=== PATIENT | female | born 1980 | race Caucasian/White ===

== ENCOUNTER 2017-03-13 12:36 | Emergency (ER) | payer OTHER ==
[~2017-03-13] VITALS: Ht 156.2 cm; Wt 145.7 kg
[2017-03-13] MEDS ORDERED: CETI10TA (12:51)
[2017-03-13] MEDS ORDERED: VITA1CAP40 (12:51)
[2017-03-13] MEDS ORDERED: MONT10TA2 (12:51)
[2017-03-13] MEDS ORDERED: METF500T4 (12:51)
[2017-03-13] MEDS ORDERED: ARNU1INH (12:51)
[2017-03-13] MEDS ORDERED: LEVO75TA4 (12:51)
[2017-03-13] MEDS ORDERED: BREO1INH (12:51)
[2017-03-13] MEDS ORDERED: IPRATROPIUM 0.5MG/ALBUTEROL 2.5MG INH SOL UD 3ML (DUONEB)(J7620) NEB ONE (13:15)
[2017-03-13] MEDS ORDERED: ALBU17IN INH (14:45)
[2017-03-13] MEDS ORDERED: PRED20TA PO (14:45)
[2017-03-13] MEDS ORDERED: BENZ200C53 PO (14:45)
[2017-03-13 14:50] VITALS: BP 155/90
--- NOTE | 2017-03-13 15:50 | REP ---
HISTORY: Chest pain and productive cough. COMPARISON: 06/03/2010. FINDINGS: The superior mediastinal structures are midline. The cardiac silhouette is unremarkable in size, shape and position. The diaphragmatic surfaces of the lungs are regular and the costophrenic angles are clear. The pulmonary carlson are clear. The imaged osseous structures are intact. IMPRESSION: There is no acute cardiopulmonary disease. Signed by Deny Barrett DO 03/13/2017 04:37 P
== END 2017-03-13 14:59 | disposition home or self-care (01) ==
LOC: M ED 12:36
DX: J45.901 Unspecified asthma with (acute) exacerbation (principal)

== ENCOUNTER → 2018-05-10 | Outpatient (CLI) | payer BC, MEDICAID, SELFPAY, OTHER | LOC: M PLARAD 07:34 | DX: M19.011 Primary osteoarthritis, right shoulder (principal); S46.011A Strain of muscle(s) and tendon(s) of the rotator cuff of right shoulder, initial encounter; M75.41 Impingement syndrome of right shoulder; Y92.89 Other specified places as the place of occurrence of the external cause; Y93.89 Activity, other specified; X58.XXXA Exposure to other specified factors, initial encounter; Y99.8 Other external cause status | CPT/HCPCS: 73221 ==

== ENCOUNTER → 2018-06-28 | Outpatient (CLI) | payer BC | LOC: M PLARAD 10:18 | DX: M50.30 Other cervical disc degeneration, unspecified cervical region (principal); M47.812 Spondylosis without myelopathy or radiculopathy, cervical region | CPT/HCPCS: 72141 ==

== ENCOUNTER 2018-10-07 18:09 | Emergency (ER) | payer BC ==
[~2018-10-07] VITALS: Ht 154.9 cm; Wt 145.4 kg
[~2018-10-07 18:09] MED LIST: ALBU17IN INH; ARNU1INH; BENZ200C70 PO; BREO1INH; CETI10TA; LEVO75TA4; METF500T4; MONT10TA2; PRED20TA PO; VITA50005
[2018-10-07] MEDS ORDERED: ADV100INH INH (18:15)
[2018-10-07] MEDS ORDERED: NAPR-50 PO (19:14)
[2018-10-07 19:27] VITALS: BP 118/70
== END 2018-10-07 19:30 | disposition home or self-care (01) ==
LOC: M ED 18:09
DX: M17.12 Unilateral primary osteoarthritis, left knee (principal); Z98.890 Other specified postprocedural states; J45.909 Unspecified asthma, uncomplicated; E11.9 Type 2 diabetes mellitus without complications; E03.9 Hypothyroidism, unspecified; Z79.899 Other long term (current) drug therapy; Z79.84 Long term (current) use of oral hypoglycemic drugs; Z79.51 Long term (current) use of inhaled steroids

== ENCOUNTER 2019-01-03 15:12 | Emergency (ER) | payer BC ==
[~2019-01-03] VITALS: Ht 154.9 cm; Wt 143.4 kg
[~2019-01-03 15:12] MED LIST changes: +ADV100INH INH; +NAPR-837 PO
[2019-01-03] MEDS ORDERED: IPRATROPIUM 0.5MG/ALBUTEROL 2.5MG INH SOL UD 3ML (DUONEB)(J7620) NEB ONE (16:30)
[2019-01-03] MEDS ORDERED: predniSONE 20 MG TAB PO ONE (16:30)
--- NOTE | 2019-01-03 16:45 | REP ---
Chest two views HISTORY: Cough Comparison: 03/13/2017 The lungs are clear. The heart is normal in size. The pulmonary vasculature is normal in appearance. The bony structure is intact. IMPRESSION: No acute disease. Electronically Signed by [place] MD 01/03/2019 04:36 P
[2019-01-03 16:55] VITALS: BP 135/73
[2019-01-03] MEDS ORDERED: PRED20TA PO (17:18)
[2019-01-03] MEDS ORDERED: CETI10CA2 PO (17:18)
[2019-01-03] MEDS ORDERED: VENTAER INH (17:18)
[2019-01-03] MEDS ORDERED: MUCI600T31 PO (17:18)
--- NOTE | 2019-01-03 19:51 | ECGEPIP ---
Stationary ECG Study [facility] - ED Test Date: 2019-01-03 Pat Name: JEFFERSON GARG Department: Room: - Gender: F Neuropsychologist: : 1980 Requested By: Jyoti Ibrahim Order Number: [id number] Reading MD: Jyoti Ibrahim Measurements Intervals [place] Rate: 89 P: 10 HI: 126 QRS: 3 QRSD: 98 T: 37 QT: 333 QTc: 405 Interpretive Statements SINUS RHYTHM CW 11/26/13 RATE INCREASED Electronically Signed On 01-03-2019 19:51:35 EDT by Jyoti Ibrahim
== END 2019-01-03 17:23 | disposition home or self-care (01) ==
LOC: M ED 15:12
DX: J45.909 Unspecified asthma, uncomplicated (principal); E11.9 Type 2 diabetes mellitus without complications

== ENCOUNTER 2019-01-06 20:44 | Emergency (ER) | payer BC ==
[~2019-01-06] VITALS: Ht 154.9 cm; Wt 145.4 kg
[~2019-01-06 20:44] MED LIST changes: +CETI10CA2 PO; +MUCI600T31 PO; +VENTAER INH
[2019-01-07] MEDS ORDERED: ACETAMINOPHEN 500 MG TAB PO ONE (01:00)
[2019-01-07] MEDS ORDERED: ALBUTEROL SULFATE 2.5 MG/0.5 ML INH NEB SOLN NEB ONE (01:00)
[2019-01-07] MEDS ORDERED: AUGMENTIN 875 MG TAB PO ONE (01:00)
[2019-01-07 01:04] VITALS: BP 133/75
--- NOTE | 2019-01-07 01:04 | REP ---
Clinical: Persistent cough . Comparison: 01/03/2019 . Technique: PA and lateral. Findings: The mediastinum and cardiac silhouette are normal. The lung carlson are clear and without acute consolidation, effusion, or pneumothorax. The skeletal structures are intact and normal. Impression: 1. No acute cardiopulmonary process. Electronically Signed by Javed Moya MD 01/07/2019 12:56 A
[2019-01-07] MEDS ORDERED: GNPTAB PO (02:05)
[2019-01-07] MEDS ORDERED: AMOX875T2 PO (02:05)
[2019-01-07] MEDS ORDERED: FLUT50SP33 NARES (02:05)
[2019-01-07] MEDS ORDERED: ALB2.5NEB NEB (02:07)
== END 2019-01-07 02:14 | disposition home or self-care (01) ==
LOC: M ED 20:44
DX: J45.901 Unspecified asthma with (acute) exacerbation (principal); J01.90 Acute sinusitis, unspecified; R09.82 Postnasal drip; E11.9 Type 2 diabetes mellitus without complications; E03.9 Hypothyroidism, unspecified; Z79.899 Other long term (current) drug therapy; Z79.52 Long term (current) use of systemic steroids; Z79.51 Long term (current) use of inhaled steroids; Z79.84 Long term (current) use of oral hypoglycemic drugs

== ENCOUNTER 2019-06-26 23:54 | Emergency (ER) | payer BC ==
[~2019-06-26] VITALS: Ht 154.9 cm; Wt 145.4 kg
[~2019-06-26 23:54] MED LIST changes: +ALB2.5NEB NEB; +AMOX875T2 PO; +FLUT50SP33 NARES; +GNPTAB PO; +METF-791; -METF500T4
[2019-06-27] MEDS ORDERED: ARNU1INH3 PO (00:03)
[2019-06-27] MEDS ORDERED: CYCL10TA PO (01:22)
[2019-06-27] MEDS ORDERED: CIPRODEX AD (01:23)
[2019-06-27] MEDS ORDERED: CYCLOBENZAPRINE 10 MG TAB PO ONE (01:30)
[2019-06-27] MEDS: KETOROLAC 60 MG/2 ML VIAL (J1885) IM ONE ×2 (01:42→01:43)
[2019-06-27 01:51] VITALS: BP 141/85
== END 2019-06-27 02:07 | disposition home or self-care (01) ==
LOC: M ED 23:54
DX: H60.61 Unspecified chronic otitis externa, right ear (principal); M25.511 Pain in right shoulder; E11.9 Type 2 diabetes mellitus without complications; J45.909 Unspecified asthma, uncomplicated; Z79.51 Long term (current) use of inhaled steroids; Z79.84 Long term (current) use of oral hypoglycemic drugs; Z79.899 Other long term (current) drug therapy
CPT/HCPCS: 96372; 99283; J1885

== ENCOUNTER → 2019-09-26 | Outpatient (CLI) | payer BC ==
[~2019-09-26] MED LIST changes: +ARNU1INH3 PO; +CIPRODEX AD; +CYCL10TA PO
--- NOTE | 2019-09-26 12:53 | REP ---
MRI left knee without contrast: History: Pain in the left knee. The patient relates injury 2013 and surgery 2013. Comparison MRI study of the left knee is from August 19, 2013. Comparison radiographs July 30, 2013. Technique: Axial, coronal, and sagittal imaging planes were utilized. T1 and T2-weighted and proton density weighted scans were obtained with and without fat saturation. MRI findings: There is a small to moderate joint effusion. Cortical and medullary bone signal intensity are normal. No Mcneil's cyst is seen. Prepatellar tendon soft tissue edema is again visible. Patellar and quadriceps tendon are intact. Anterior and posterior cruciate ligament are intact. There is no evidence of medial or lateral collateral ligament disruption. No lateral meniscal tear is appreciated. There is lateral compartment osteoarthritic spurring however. There is mild medial compartment spurring. There is a complex degenerative tear pattern in the medial meniscus involving the body and posterior horn. The posterior horn is a little smaller suggesting previous meniscectomy. No displaced meniscal material is appreciated. There is medial extrusion of the degenerated meniscus at mid body level bowing the medial collateral ligament. There is moderate diffuse chondromalacia and cartilage loss in the medial and lateral tibiofemoral compartments. Patellar articular cartilage is intact as is the trochlear articular cartilage. There is no visible loose body. Impression: Medial and lateral compartment osteoarthritis. Degenerative tear pattern body and posterior horn medial meniscus. Fairly diffuse articular cartilage chondromalacia changes medial and to a lesser extent lateral compartment. There is a small joint effusion. Prepatellar soft tissue edema is again seen. Electronically Signed by William Huertas MD 09/26/2019 06:37 P
== END ==
LOC: M RAD 09:42
PROVIDERS: ATTEND Physician Assistant Surgical
DX: M17.12 Unilateral primary osteoarthritis, left knee (principal); M25.462 Effusion, left knee; M25.562 Pain in left knee

== ENCOUNTER → 2019-10-10 | Outpatient (CLI) | payer BC ==
[~2019-10-10] MED LIST changes: -MONT10TA2; +MONT10TA4
--- NOTE | 2019-10-11 22:09 | REPVR ---
PROCEDURE INFORMATION: Exam: MR Cervical Spine Without Contrast Exam date and time: 10/10/2019 3:16 PM Age: 39 years old Clinical indication: Neck pain; Additional info: Cervical disc degeneration TECHNIQUE: Imaging protocol: Multiplanar magnetic resonance images of the cervical spine without contrast. COMPARISON: MRI-Spine,Cervical without con 06/28/2018 10:50 AM FINDINGS: Vertebrae: Straightened lordotic curvature. Spinal cord: Normal signal. No cord compression. C2-C3: No significant disc disease. No significant spinal stenosis. C3-C4: Mild annular bulge at C3-C4 effaces the ventral subarachnoid space without cord impingement. No foraminal stenosis. C4-C5: Broad posterior disc protrusion at C4-C5 effaces the ventral subarachnoid space with mild left hemicord impingement. No significant foraminal stenosis. C5-C6: Broad posterior disc protrusion at C5-C6 effaces the ventral subarachnoid space with mild cord impingement. No foraminal stenosis. C6-C7: No significant disc disease. No significant spinal stenosis. C7-T1: No significant disc disease. No significant spinal stenosis. Vertebral arteries: Expected flow voids in the vertebral arteries. Soft tissues: Unremarkable. IMPRESSION: 1. Bulging annulus C3-C4 without neural compromise. 2. Broad posterior disc protrusions at C4-C5 and C5-C6 with mild left hemicord impingement at C4-C5 and mid cord impingement at C5-C6. 3. No significant interval change. Electronically signed by: Miguel Mello On 10/11/2019 22:08:26 PM
== END ==
LOC: M PLARAD 14:20
PROVIDERS: ATTEND Physician Assistant
DX: M50.30 Other cervical disc degeneration, unspecified cervical region (principal); M50.20 Other cervical disc displacement, unspecified cervical region

== ENCOUNTER → 2020-05-07 | Outpatient (CLI) | payer BC ==
[~2020-05-07] MED LIST changes: +CYCL-707 PO; -CYCL10TA PO; -METF-791; +METF-838
[2020-05-07 19:21] LABS: BASO # 0.1 10^3/uL (0.0-0.2); EOS # 0.3 10^3/uL (0.0-0.5); EOS % 3.4 % (0.0-3.0); HEMATOCRIT 40.8 % (36.0-47.0); HEMOGLOBIN 13.1 g/dl (12.0-15.5); LYMPH # 2.3 10^3/uL (1.5-5.0); LYMPH % 26.7 % (24.0-44.0); MEAN CORPUSCULAR HEMOGLOBIN 28.5 pg (27.0-33.0); MEAN CORPUSCULAR HGB CONC 32.1 g/dl (32.0-36.5); MEAN CORPUSCULAR VOLUME 88.7 fl (80.0-96.0); MONO # 0.6 10^3/uL (0.0-0.8); MONO % 6.7 % (0.0-5.0); NEUTROPHILS # 5.4 10^3/uL (1.5-8.5); PLATELET COUNT, AUTOMATED 330 10^3/uL (150-450); WHITE BLOOD COUNT 8.6 10^3/uL (4.0-10.0)
[2020-05-07 19:38] LABS: RHEUMATOID FACTOR QUANT < 10.0 IU/ML (<15.0); URIC ACID 5.8 MG/DL (2.6-6.0)
[2020-05-07 19:39] LABS: C REACTIVE PROTEIN QUANTITATIV < 0.30 MG/DL (0.00-0.30)
[2020-05-07 20:52] LABS: ERYTHROCYTE SEDIMENTATION RATE 11 mm/hr (0-20)
[2020-05-13 23:07] LABS: ANTINUCLEAR ANTIBODIES DIRECT Negative (Negative); HLA-B27 Positive (.); Lyme Disease IgG/IgM Antibodie <0.91 ISR (0.00-0.90); Lyme Disease IgM Ab Quantitati <0.80 index (0.00-0.79)
== END ==
LOC: M WUC 13:07
PROVIDERS: ATTEND Physician Assistant Surgical
DX: M17.12 Unilateral primary osteoarthritis, left knee (principal)

== ENCOUNTER → 2021-02-24 | Outpatient (REF) | payer OTHER ==
[~2021-02-24] MED LIST changes: +CIPR7.5D5 AD; -CIPRODEX AD; +MONT10TA10; -MONT10TA4
== END ==
LOC: M LAB REF 16:21
PROVIDERS: ATTEND Surgery
DX: L91.8 Other hypertrophic disorders of the skin (principal)

== ENCOUNTER → 2021-03-18 | Outpatient (CLI) | payer OTHER ==
[2021-03-18 19:25] LABS: BASO # 0.1 10^3/uL (0.0-0.2); BASO % 0.9 % (0.0-1.0); EOS # 0.3 10^3/uL (0.0-0.5); EOS % 2.4 % (0.0-3.0); HEMATOCRIT 43.2 % (36.0-47.0); HEMOGLOBIN 13.8 g/dl (12.0-15.5); LYMPH # 2.7 10^3/uL (1.5-5.0); LYMPH % 23.2 % (24.0-44.0); MEAN CORPUSCULAR HEMOGLOBIN 27.9 pg (27.0-33.0); MEAN CORPUSCULAR HGB CONC 31.9 g/dl (32.0-36.5); MEAN CORPUSCULAR VOLUME 87.4 fl (80.0-96.0); MONO # 0.5 10^3/uL (0.0-0.8); MONO % 4.5 % (2.0-8.0); NEUTROPHILS % 68.7 % (36.0-66.0); PLATELET COUNT, AUTOMATED 319 10^3/uL (150-450); RED BLOOD COUNT 4.94 10^6/uL (4.00-5.40); WHITE BLOOD COUNT 11.6 10^3/uL (4.0-10.0)
[2021-03-18 19:47] LABS: ERYTHROCYTE SEDIMENTATION RATE 16 mm/hr (0-20)
[2021-03-18 19:53] LABS: ALBUMIN 4.2 GM/DL (3.2-5.2); ALT/SGPT 32 U/L (12-78); BILIRUBIN,TOTAL 0.3 MG/DL (0.2-1.0); BLOOD UREA NITROGEN 13 MG/DL (7-18); CALCIUM LEVEL 8.8 MG/DL (8.5-10.1); CARBON DIOXIDE LEVEL 24 MEQ/L (21-32); CHLORIDE LEVEL 106 MEQ/L (98-107); CREATININE FOR GFR 0.92 MG/DL (0.55-1.30); GLOMERULAR FILTRATION RATE > 60.0 (>58); GLUCOSE, FASTING 127 MG/DL (70-100); POTASSIUM SERUM 5.9 MEQ/L (3.5-5.1); SODIUM LEVEL 136 MEQ/L (136-145); TOTAL PROTEIN 8.7 GM/DL (6.4-8.2)
--- NOTE | 2021-04-01 14:22 | REP ---
INDICATION: LOW BACK PAIN-LAB 1ST AND XRAY 2ND. Repeat dictation. COMPARISON: None. TECHNIQUE: Four views. FINDINGS: Four views of the sacrum and SI joints demonstrate no evidence of ankylosis or erosive change. There is minimal early SI joint spurring. No bony destructive lesion. IMPRESSION: Minimal SI joint spurring. No evidence of ankylosis or erosive change. <Electronically signed by Liam Huertas > 04/01/21 [id number]
--- NOTE | 2021-04-01 14:23 | REP ---
INDICATION: LOW BACK PAIN-LAB 1ST AND XRAY 2ND. Repeat dictation. COMPARISON: None. TECHNIQUE: Five views of the lumbar spine are obtained including lateral views in flexion and extension. FINDINGS: Lumbar vertebral body heights are preserved. Alignment is normal. No subluxation or instability is seen with upright flexion extension views. There is discogenic spurring anteriorly at L3-4 L2-3 and L1-2. Pedicles and posterior elements are intact. Minimal facet hypertrophy is present bilaterally at L4-5. Psoas margins are symmetric. There are clips in right upper quadrant of the abdomen. IMPRESSION: Mild degenerative spondylosis changes. No subluxation or instability with flexion extension lateral views. <Electronically signed by Liam Huertas > 04/01/21 [id number]
--- NOTE | 2021-04-01 14:25 | REP ---
INDICATION: LOW BACK PAIN-LAB 1ST AND XRAY 2ND. Repeat dictation. COMPARISON: None. TECHNIQUE: Three views of the thoracic spine are presented. FINDINGS: Thoracic vertebral body heights are preserved. Alignment is normal. Discogenic spurring is noted in the midthoracic spine at multiple levels. The pedicles and the posterior elements are intact. No paravertebral soft tissue mass or swelling is seen. No bony destructive lesion is appreciated. IMPRESSION: Degenerative disc changes. No acute bony abnormality. <Electronically signed by Liam Huertas > 04/01/21 [id number]
== END ==
LOC: M LAB 18:19
PROVIDERS: ATTEND Internal Medicine Rheumatology
DX: M51.34 Other intervertebral disc degeneration, thoracic region (principal); M47.816 Spondylosis without myelopathy or radiculopathy, lumbar region

== ENCOUNTER → 2021-03-29 | Outpatient (CLI) | payer OTHER | LOC: M LAB 13:38 | PROVIDERS: ATTEND Nurse Practitioner Family | DX: E87.5 Hyperkalemia (principal) ==

== ENCOUNTER → 2021-08-11 | Outpatient (CLI) | payer OTHER ==
--- NOTE | 2021-08-11 11:45 | REP ---
INDICATION: (+) HLA B27 W/ STENOSIS. COMPARISON: Radiographs 03/18/2021. TECHNIQUE: Multiple sequences obtained in the axial, coronal and sagittal planes. FINDINGS: The osseous structures of the pelvis demonstrate normal bone marrow signal. There is no bone marrow edema or occult fracture. There is no evidence of sacroiliitis. There are findings compatible with mild bilateral greater trochanteric tendonobursitis. There is no evidence of pelvic mass or adenopathy. No free fluid is seen. Urinary bladder appears unremarkable. The uterus and ovaries appear normal. There is a normal appendix.The length of the uterus is approximately 10.7 cm. The endometrial thickness is approximately 5 mm. IMPRESSION: There are findings compatible with mild bilateral greater trochanteric tendonobursitis. No evidence of sacroiliitis or other pelvic abnormality. <Electronically signed by Rehan Caldwell > 08/11/21 [id number]
== END ==
LOC: M RAD 08:33
PROVIDERS: ATTEND Internal Medicine Rheumatology
DX: M54.50 Low back pain, unspecified (principal); Z15.89 Genetic susceptibility to other disease

== ENCOUNTER → 2021-08-25 | Outpatient (CLI) | payer OTHER ==
[2021-08-25 18:08] LABS: BASO # 0.1 10^3/uL (0.0-0.2); EOS # 0.3 10^3/uL (0.0-0.5); EOS % 3.3 % (0.0-3.0); HEMATOCRIT 39.3 % (36.0-47.0); HEMOGLOBIN 12.4 g/dl (12.0-15.5); LYMPH # 2.3 10^3/uL (1.5-5.0); LYMPH % 25.6 % (24.0-44.0); MEAN CORPUSCULAR HEMOGLOBIN 27.9 pg (27.0-33.0); MEAN CORPUSCULAR HGB CONC 31.6 g/dl (32.0-36.5); MEAN CORPUSCULAR VOLUME 88.5 fl (80.0-96.0); MONO # 0.6 10^3/uL (0.0-0.8); MONO % 6.6 % (2.0-8.0); NEUTROPHILS # 5.6 10^3/uL (1.5-8.5); NEUTROPHILS % 63.2 % (36.0-66.0); PLATELET COUNT, AUTOMATED 344 10^3/uL (150-450); RED BLOOD COUNT 4.44 10^6/uL (4.00-5.40); WHITE BLOOD COUNT 8.9 10^3/uL (4.0-10.0)
[2021-08-25 18:42] LABS: ALBUMIN 3.8 GM/DL (3.2-5.2); ALT/SGPT 21 U/L (12-78); BILIRUBIN,TOTAL 0.4 MG/DL (0.2-1.0); BLOOD UREA NITROGEN 9 MG/DL (7-18); CALCIUM LEVEL 8.8 MG/DL (8.5-10.1); CARBON DIOXIDE LEVEL 28 MEQ/L (21-32); CHLORIDE LEVEL 105 MEQ/L (98-107); CHOLESTEROL LEVEL 165 MG/DL (<200); CHOLESTEROL RISK RATIO 4.342 (<5); CREATININE FOR GFR 0.69 MG/DL (0.55-1.30); GLOMERULAR FILTRATION RATE > 60.0 (>58); GLUCOSE, FASTING 99 MG/DL (70-100); HDL CHOLESTEROL 38 MG/DL (>40); LDL CHOLESTEROL 107 MG/DL (<100); NON-HDL-C 127 MG/DL; POTASSIUM SERUM 4.8 MEQ/L (3.5-5.1); SODIUM LEVEL 138 MEQ/L (136-145); TOTAL PROTEIN 7.3 GM/DL (6.4-8.2); TRIGLYCERIDES LEVEL 102 MG/DL (<150)
[2021-08-25 19:12] LABS: HEMOGLOBIN A1c 5.9 %
== END ==
LOC: M PLALAB 14:19
PROVIDERS: ATTEND Nurse Practitioner Family
DX: E11.65 Type 2 diabetes mellitus with hyperglycemia (principal)

== ENCOUNTER → 2021-12-30 | Outpatient (CLI) | payer OTHER ==
[~2021-12-30] MED LIST changes: -MONT10TA10; +MONT10TA97
[2021-12-30 15:13] LABS: BASO # 0.1 10^3/uL (0.0-0.2); BASO % 0.9 % (0.0-1.0); EOS # 0.3 10^3/uL (0.0-0.5); EOS % 3.1 % (0.0-3.0); HEMATOCRIT 39.2 % (36.0-47.0); HEMOGLOBIN 12.8 g/dl (12.0-15.5); LYMPH # 2.4 10^3/uL (1.5-5.0); LYMPH % 26.6 % (24.0-44.0); MEAN CORPUSCULAR HEMOGLOBIN 28.1 pg (27.0-33.0); MEAN CORPUSCULAR HGB CONC 32.7 g/dl (32.0-36.5); MEAN CORPUSCULAR VOLUME 86.2 fl (80.0-96.0); MONO # 0.6 10^3/uL (0.0-0.8); MONO % 6.2 % (2.0-8.0); NEUTROPHILS # 5.7 10^3/uL (1.5-8.5); NEUTROPHILS % 62.9 % (36.0-66.0); PLATELET COUNT, AUTOMATED 338 10^3/uL (150-450); RED BLOOD COUNT 4.55 10^6/uL (4.00-5.40); WHITE BLOOD COUNT 9.1 10^3/uL (4.0-10.0)
[2021-12-30 15:49] LABS: HEMOGLOBIN A1c 5.8 %
[2021-12-30 15:53] LABS: ALBUMIN 3.6 GM/DL (3.2-5.2); ALT/SGPT 22 U/L (12-78); BILIRUBIN,TOTAL 0.5 MG/DL (0.2-1.0); BLOOD UREA NITROGEN 12 MG/DL (7-18); CALCIUM LEVEL 8.8 MG/DL (8.5-10.1); CARBON DIOXIDE LEVEL 27 MEQ/L (21-32); CHLORIDE LEVEL 105 MEQ/L (98-107); CHOLESTEROL LEVEL 164 MG/DL (<200); CREATININE FOR GFR 0.78 MG/DL (0.55-1.30); GLOMERULAR FILTRATION RATE > 60.0 (>58); GLUCOSE, FASTING 95 MG/DL (70-100); HDL CHOLESTEROL 41 MG/DL (>40); LDL CHOLESTEROL 108 MG/DL (<100); NON-HDL-C 123 MG/DL; POTASSIUM SERUM 4.6 MEQ/L (3.5-5.1); SODIUM LEVEL 138 MEQ/L (136-145); TOTAL PROTEIN 7.3 GM/DL (6.4-8.2); TRIGLYCERIDES LEVEL 77 MG/DL (<150)
== END ==
LOC: M PLALAB 13:45
PROVIDERS: ATTEND Nurse Practitioner Family
DX: E78.00 Pure hypercholesterolemia, unspecified (principal); Z79.899 Other long term (current) drug therapy; E11.65 Type 2 diabetes mellitus with hyperglycemia; E55.9 Vitamin D deficiency, unspecified

== ENCOUNTER → 2022-03-28 | Outpatient (CLI) | payer OTHER ==
[2022-03-28 17:46] LABS: BASO # 0.1 10^3/uL (0.0-0.2); EOS # 0.2 10^3/uL (0.0-0.5); EOS % 2.8 % (0.0-3.0); HEMATOCRIT 37.2 % (36.0-47.0); HEMOGLOBIN 11.9 g/dl (12.0-15.5); LYMPH # 2.2 10^3/uL (1.5-5.0); LYMPH % 26.6 % (24.0-44.0); MEAN CORPUSCULAR HEMOGLOBIN 28.3 pg (27.0-33.0); MEAN CORPUSCULAR VOLUME 88.6 fl (80.0-96.0); MONO # 0.5 10^3/uL (0.0-0.8); MONO % 6.3 % (2.0-8.0); NEUTROPHILS # 5.2 10^3/uL (1.5-8.5); NEUTROPHILS % 63.1 % (36.0-66.0); PLATELET COUNT, AUTOMATED 326 10^3/uL (150-450); WHITE BLOOD COUNT 8.3 10^3/uL (4.0-10.0)
[2022-03-28 19:08] LABS: ALBUMIN 3.6 GM/DL (3.2-5.2); ALT/SGPT 20 U/L (12-78); BILIRUBIN,TOTAL 0.4 MG/DL (0.2-1.0); BLOOD UREA NITROGEN 8 MG/DL (7-18); CALCIUM LEVEL 8.9 MG/DL (8.5-10.1); CARBON DIOXIDE LEVEL 26 MEQ/L (21-32); CHLORIDE LEVEL 110 MEQ/L (98-107); CHOLESTEROL LEVEL 168 MG/DL (<200); CHOLESTEROL RISK RATIO 4.421 (<5); CREATININE FOR GFR 0.76 MG/DL (0.55-1.30); GLOMERULAR FILTRATION RATE > 60.0 (>58); GLUCOSE, FASTING 102 MG/DL (70-100); HDL CHOLESTEROL 38 MG/DL (>40); LDL CHOLESTEROL 115 MG/DL (<100); NON-HDL-C 130 MG/DL; POTASSIUM SERUM 4.7 MEQ/L (3.5-5.1); SODIUM LEVEL 141 MEQ/L (136-145); TOTAL PROTEIN 7.1 GM/DL (6.4-8.2); TRIGLYCERIDES LEVEL 76 MG/DL (<150)
== END ==
LOC: M PLALAB 13:55
PROVIDERS: ATTEND Nurse Practitioner Family
DX: Z00.01 Encounter for general adult medical examination with abnormal findings (principal); E11.65 Type 2 diabetes mellitus with hyperglycemia; E66.01 Morbid (severe) obesity due to excess calories; E78.00 Pure hypercholesterolemia, unspecified; E03.9 Hypothyroidism, unspecified; E55.9 Vitamin D deficiency, unspecified

== ENCOUNTER → 2022-05-17 | Outpatient (CLI) | payer OTHER | LOC: M PLAIMG 09:56 | PROVIDERS: ATTEND Nurse Practitioner Family | DX: M54.12 Radiculopathy, cervical region (principal) ==

== ENCOUNTER → 2022-05-17 | Outpatient (CLI) | payer OTHER | LOC: M WHC 10:50 | PROVIDERS: ATTEND Nurse Practitioner Family | DX: Z12.31 Encounter for screening mammogram for malignant neoplasm of breast (principal) ==

== ENCOUNTER → 2022-06-27 | Outpatient (CLI) | payer OTHER ==
[2022-06-27 13:45] LABS: BASO # 0.1 10^3/uL (0.0-0.2); EOS # 0.4 10^3/uL (0.0-0.5); EOS % 4.4 % (0.0-3.0); HEMATOCRIT 38.9 % (36.0-47.0); HEMOGLOBIN 12.1 g/dl (12.0-15.5); LYMPH # 2.5 10^3/uL (1.5-5.0); LYMPH % 28.9 % (24.0-44.0); MEAN CORPUSCULAR HEMOGLOBIN 28.1 pg (27.0-33.0); MEAN CORPUSCULAR HGB CONC 31.1 g/dl (32.0-36.5); MEAN CORPUSCULAR VOLUME 90.3 fl (80.0-96.0); MONO # 0.7 10^3/uL (0.0-0.8); MONO % 7.6 % (2.0-8.0); NEUTROPHILS % 57.8 % (36.0-66.0); PLATELET COUNT, AUTOMATED 281 10^3/uL (150-450); RED BLOOD COUNT 4.31 10^6/uL (4.00-5.40); WHITE BLOOD COUNT 8.6 10^3/uL (4.0-10.0)
[2022-06-27 14:54] LABS: ALBUMIN 3.6 GM/DL (3.2-5.2); ALT/SGPT 17 U/L (12-78); BILIRUBIN,TOTAL 0.2 MG/DL (0.2-1.0); BLOOD UREA NITROGEN 11 MG/DL (7-18); CALCIUM LEVEL 8.9 MG/DL (8.5-10.1); CARBON DIOXIDE LEVEL 24 MEQ/L (21-32); CHLORIDE LEVEL 105 MEQ/L (98-107); CHOLESTEROL LEVEL 164 MG/DL (<200); CHOLESTEROL RISK RATIO 4.205 (<5); GLOMERULAR FILTRATION RATE > 60.0 (>58); GLUCOSE, FASTING 114 MG/DL (70-100); HDL CHOLESTEROL 39 MG/DL (>40); LDL CHOLESTEROL 106 MG/DL (<100); NON-HDL-C 125 MG/DL; POTASSIUM SERUM 4.2 MEQ/L (3.5-5.1); SODIUM LEVEL 137 MEQ/L (136-145); TOTAL PROTEIN 6.8 GM/DL (6.4-8.2); TRIGLYCERIDES LEVEL 94 MG/DL (<150)
[2022-06-27 17:26] LABS: TOTAL 25(OH) VITAMIN D 22.5 NG/ML (30.0-100.0)
== END ==
LOC: M PLALAB 09:40
PROVIDERS: ATTEND Nurse Practitioner Family
DX: E11.65 Type 2 diabetes mellitus with hyperglycemia (principal); E78.00 Pure hypercholesterolemia, unspecified; E03.9 Hypothyroidism, unspecified; E55.9 Vitamin D deficiency, unspecified; Z79.899 Other long term (current) drug therapy

== ENCOUNTER 2022-09-04 01:22 | Emergency (ER) | payer OTHER ==
[~2022-09-04] VITALS: Ht 154.9 cm; Wt 140.0 kg
[2022-09-04] MEDS ORDERED: TIZA4CAP PO (01:40)
[2022-09-04 06:04] VITALS: BP 136/74
[2022-09-04] MEDS ORDERED: KETOROLAC 30 MG/ML 1ML VIAL IM ONE (06:35)
[2022-09-04] MEDS ORDERED: ACETAMINOPHEN 500 MG TAB PO ONE (06:35)
[2022-09-04] MEDS ORDERED: diazePAM 5MG TABLET PO ONE (06:35)
[2022-09-04] MEDS ORDERED: LIDOCAINE 5% (LIDODERM) PATCH TD ONE (06:35)
== END 2022-09-04 07:39 | disposition left against medical advice (07) ==
LOC: M ED 01:22
DX: M54.9 Dorsalgia, unspecified (principal); Z53.9 Procedure and treatment not carried out, unspecified reason; E11.9 Type 2 diabetes mellitus without complications; J45.909 Unspecified asthma, uncomplicated; E03.9 Hypothyroidism, unspecified; Z79.890 Hormone replacement therapy; Z79.84 Long term (current) use of oral hypoglycemic drugs; Z79.899 Other long term (current) drug therapy

== ENCOUNTER → 2022-10-27 | Outpatient (CLI) | payer OTHER ==
[~2022-10-27] MED LIST changes: +TIZA4CAP PO
[2022-10-27 15:58] LABS: BASO # 0.1 10^3/uL (0.0-0.2); BASO % 0.9 % (0.0-1.0); EOS # 0.2 10^3/uL (0.0-0.5); EOS % 2.8 % (0.0-3.0); HEMATOCRIT 38.4 % (36.0-47.0); HEMOGLOBIN 12.5 g/dl (12.0-15.5); LYMPH # 2.2 10^3/uL (1.5-5.0); LYMPH % 25.6 % (24.0-44.0); MEAN CORPUSCULAR HEMOGLOBIN 28.7 pg (27.0-33.0); MEAN CORPUSCULAR HGB CONC 32.6 g/dl (32.0-36.5); MEAN CORPUSCULAR VOLUME 88.3 fl (80.0-96.0); MONO # 0.6 10^3/uL (0.0-0.8); MONO % 6.5 % (2.0-8.0); NEUTROPHILS # 5.4 10^3/uL (1.5-8.5); PLATELET COUNT, AUTOMATED 322 10^3/uL (150-450); RED BLOOD COUNT 4.35 10^6/uL (4.00-5.40); WHITE BLOOD COUNT 8.4 10^3/uL (4.0-10.0)
[2022-10-27 16:15] LABS: HEMOGLOBIN A1c 6.1 % (4.0-6.0)
[2022-10-27 16:29] LABS: ALBUMIN 3.8 G/DL (3.2-5.2); ALKALINE PHOSPHATASE 65 U/L (46-116); ALT/SGPT 13 U/L (7.0-40); AST/SGOT 15 U/L (<34); BILIRUBIN,TOTAL 0.4 MG/DL (0.3-1.2); BLOOD UREA NITROGEN 16 MG/DL (9-23); CALCIUM LEVEL 8.6 MG/DL (8.5-10.1); CARBON DIOXIDE LEVEL 27 MMOL/L (20-31); CHLORIDE LEVEL 106 MMOL/L (98-107); CHOLESTEROL LEVEL 165 MG/DL (<200); CHOLESTEROL RISK RATIO 3.87 (<5); CREATININE FOR GFR 0.83 MG/DL (0.55-1.30); GLOMERULAR FILTRATION RATE > 60.0 (>58); GLUCOSE, FASTING 103 MG/DL (60-100); HDL CHOLESTEROL 42.6 MG/DL (>40); NON-HDL-C 122 MG/DL; POTASSIUM SERUM 4.3 MMOL/L (3.5-5.1); SODIUM LEVEL 138 MMOL/L (136-145); TRIGLYCERIDES LEVEL 77 MG/DL (<150)
[2022-10-27 16:31] LABS: THYROID STIMULATING HORMONE 2.481 uIU/ML (0.55-4.78); TOTAL 25(OH) VITAMIN D 19.2 NG/ML (20.0-100.0)
== END ==
LOC: M PLALAB 13:32
PROVIDERS: ATTEND Nurse Practitioner Family
DX: Z00.01 Encounter for general adult medical examination with abnormal findings (principal); E11.65 Type 2 diabetes mellitus with hyperglycemia; E03.9 Hypothyroidism, unspecified; E78.00 Pure hypercholesterolemia, unspecified; E55.9 Vitamin D deficiency, unspecified

== ENCOUNTER → 2022-12-07 | Outpatient (CLI) | payer OTHER | LOC: M RAD 12:37 | PROVIDERS: ATTEND Nurse Practitioner Family | DX: M54.16 Radiculopathy, lumbar region (principal) ==

== ENCOUNTER → 2023-06-06 | Outpatient (CLI) | payer OTHER | LOC: M PLAIMG 12:25 | PROVIDERS: ATTEND Pain Medicine Interventional Pain Medicine | DX: M47.814 Spondylosis without myelopathy or radiculopathy, thoracic region (principal); R93.7 Abnormal findings on diagnostic imaging of other parts of musculoskeletal system ==

== ENCOUNTER 2023-09-29 15:05 | Emergency (ER) | payer OTHER ==
[~2023-09-29] VITALS: Ht 154.9 cm; Wt 140.9 kg
[2023-09-29 15:05] VITALS: BP 145/75; TEMP 98.6; O2SAT 99
[2023-09-29] MEDS ORDERED: KETOROLAC 60MG 2ML VIAL IM ONE (18:05)
[2023-09-29] MEDS ORDERED: IBUP80TA PO (18:05)
[2023-09-29] MEDS ORDERED: ACET325C5 PO (18:05)
== END 2023-09-29 18:26 | disposition home or self-care (01) ==
LOC: M ED 15:05
DX: M25.512 Pain in left shoulder (principal); E11.9 Type 2 diabetes mellitus without complications; J45.909 Unspecified asthma, uncomplicated; E03.9 Hypothyroidism, unspecified; Z79.84 Long term (current) use of oral hypoglycemic drugs; Z79.899 Other long term (current) drug therapy
CPT/HCPCS: 73030; 96372; 99282; J1885

== ENCOUNTER → 2023-10-11 | Outpatient (CLI) | payer OTHER ==
[~2023-10-11] MED LIST changes: +ACET325C5 PO; +IBUP80TA PO
== END ==
LOC: M PLARAD 12:49
PROVIDERS: ATTEND Pain Medicine Interventional Pain Medicine
DX: M47.814 Spondylosis without myelopathy or radiculopathy, thoracic region (principal); R93.89 Abnormal findings on diagnostic imaging of other specified body structures

== ENCOUNTER → 2023-10-30 | Outpatient (CLI) | payer OTHER ==
[2023-10-30 17:50] LABS: BASO # 0.1 10^3/uL (0.0-0.2); BASO % 1.2 % (0.0-1.0); EOS # 0.3 10^3/uL (0.0-0.5); HEMATOCRIT 39.5 % (36.0-47.0); LYMPH # 2.5 10^3/uL (1.5-5.0); LYMPH % 26.6 % (24.0-44.0); MEAN CORPUSCULAR HEMOGLOBIN 28.6 pg (27.0-33.0); MEAN CORPUSCULAR HGB CONC 32.9 g/dl (32.0-36.5); MEAN CORPUSCULAR VOLUME 86.8 fl (80.0-96.0); MONO # 0.5 10^3/uL (0.0-0.8); MONO % 5.8 % (2.0-8.0); NEUTROPHILS # 5.9 10^3/uL (1.5-8.5); NEUTROPHILS % 63.2 % (36.0-66.0); PLATELET COUNT, AUTOMATED 327 10^3/uL (150-450); RED BLOOD COUNT 4.55 10^6/uL (4.00-5.40); WHITE BLOOD COUNT 9.3 10^3/uL (4.0-10.0)
[2023-10-30 18:08] LABS: HEMOGLOBIN A1c 5.9 % (4.0-6.0)
[2023-10-30 18:28] LABS: ALBUMIN 3.7 G/DL (3.2-5.2); ALKALINE PHOSPHATASE 66 U/L (46-116); ALT/SGPT 15 U/L (7.0-40); AST/SGOT 11 U/L (<34); BILIRUBIN,TOTAL 0.5 MG/DL (0.3-1.2); BLOOD UREA NITROGEN 9 MG/DL (9-23); CALCIUM LEVEL 8.7 MG/DL (8.5-10.1); CARBON DIOXIDE LEVEL 25 MMOL/L (20-31); CHLORIDE LEVEL 106 MMOL/L (98-107); CHOLESTEROL LEVEL 154 MG/DL (<200); CHOLESTEROL RISK RATIO 4.65 (<5); CREATININE FOR GFR 0.72 MG/DL (0.55-1.30); GLOMERULAR FILTRATION RATE > 60.0 (>58); GLUCOSE, FASTING 138 MG/DL (60-100); HDL CHOLESTEROL 33.1 MG/DL (>40); LDL CHOLESTEROL 104.7 MG/DL (<100); NON-HDL-C 120.9 MG/DL; POTASSIUM SERUM 4.9 MMOL/L (3.5-5.1); SODIUM LEVEL 137 MMOL/L (136-145); TRIGLYCERIDES LEVEL 81 MG/DL (<150)
[2023-10-30 18:30] LABS: FREE T4 0.82 NG/DL (0.89-1.76); THYROID STIMULATING HORMONE 1.975 uIU/ML (0.55-4.78); TOTAL 25(OH) VITAMIN D 14.8 NG/ML (20.0-100.0)
== END ==
LOC: M PLALAB 15:39
PROVIDERS: ATTEND Physician Assistant
DX: E11.65 Type 2 diabetes mellitus with hyperglycemia (principal); Z00.00 Encounter for general adult medical examination without abnormal findings

== ENCOUNTER → 2025-01-15 | Outpatient (CLI) | payer OTHER ==
[~2025-01-15] MED LIST changes: -ADV100INH INH; +ADVA1AER8 INH
[2025-01-15 13:47] LABS: BASO # 0.1 10^3/uL (0.0-0.2); EOS # 0.3 10^3/uL (0.0-0.5); EOS % 3.3 % (0.0-3.0); HEMOGLOBIN 12.5 g/dl (12.0-15.5); LYMPH # 2.7 10^3/uL (1.5-5.0); LYMPH % 28.9 % (24.0-44.0); MEAN CORPUSCULAR HEMOGLOBIN 28.8 pg (27.0-33.0); MEAN CORPUSCULAR HGB CONC 32.9 g/dl (32.0-36.5); MEAN CORPUSCULAR VOLUME 87.6 fl (80.0-96.0); MONO # 0.7 10^3/uL (0.0-0.8); MONO % 7.5 % (2.0-8.0); NEUTROPHILS # 5.5 10^3/uL (1.5-8.5); NEUTROPHILS % 58.9 % (36.0-66.0); PLATELET COUNT, AUTOMATED 311 10^3/uL (150-450); RED BLOOD COUNT 4.34 10^6/uL (4.00-5.40); WHITE BLOOD COUNT 9.3 10^3/uL (4.0-10.0)
[2025-01-15 13:49] LABS: THYROID STIMULATING HORMONE 3.273 uIU/ML (0.55-4.78)
[2025-01-15 13:51] LABS: FREE T4 0.81 NG/DL (0.89-1.76)
[2025-01-15 13:59] LABS: ALBUMIN 3.7 G/DL (3.2-5.2); ALKALINE PHOSPHATASE 58 U/L (35-104); ALT/SGPT 15 U/L (7.0-40); AST/SGOT 10 U/L (<34); BILIRUBIN,TOTAL 0.3 MG/DL (0.3-1.2); BLOOD UREA NITROGEN 14 MG/DL (9-23); CALCIUM LEVEL 9.1 MG/DL (8.5-10.1); CARBON DIOXIDE LEVEL 25 MMOL/L (20-31); CHLORIDE LEVEL 106 MMOL/L (98-107); CHOLESTEROL LEVEL 181 MG/DL (<200); CHOLESTEROL RISK RATIO 4.89 (<5); CREATININE FOR GFR 0.77 MG/DL (0.55-1.30); GLOMERULAR FILTRATION RATE > 90.0 (>58); GLUCOSE, FASTING 126 MG/DL (60-100); LDL CHOLESTEROL 128.4 MG/DL (<100); POTASSIUM SERUM 4.6 MMOL/L (3.5-5.1); SODIUM LEVEL 140 MMOL/L (136-145); TRIGLYCERIDES LEVEL 78 MG/DL (<150)
[2025-01-15 14:18] LABS: CREATININE, URINE 169.5 MG/DL; MAU/CREAT RATIO 2.3 MCG/MG (0.0-30.0)
== END ==
LOC: M PLALAB 10:41
PROVIDERS: ATTEND Physician Assistant
DX: E11.9 Type 2 diabetes mellitus without complications (principal)